=== PATIENT | female | born 1965 | race Caucasian/White ===

== ENCOUNTER 2019-09-15 11:16 | Outpatient (CLI) | payer MEDICAID, SELFPAY ==
--- NOTE | 2019-09-15 11:58 | MR_ITS ---
WS: [id number] MRI CERVICAL SPINE NONCONTRAST TECHNIQUE: Sagittal T1, T2 and STIR imaging. Axial T2, gradient, and fiesta imaging. CLINICAL INFORMATION: INTERVERTEBRAL DISC DISORDER WITH RADICULOPATH OF LUMBAR DIS COMPARISON: MRI January 03, 2016 FINDINGS: Straightening of the normal cervical lordosis. Anterior interbody cervical fusion C4-C7. Disc bulging worse at C3-C4. Fusion is new since 2016. Cord signal is normal. No high-grade central canal stenosi s. C2-C3: Mild disc bulging and osteophytic ridging. Tiny central protrusion. Mild facet arthropathy. Mi ld bilateral foraminal narrowing. C3-C4: Mild disc bulging with endplate ridging. Mild right and no significant left foraminal narrowin g. Moderate facet arthropathy. Spinal canal is patent. C4-C5: Postoperative changes anterior interbody cervical fusion. Mild facet arthropathy. Spinal canal and foramen are patent. C5-C6: Postoperative changes anterior interbody cervical fusion. Moderate left and no significant rig ht foraminal narrowing. Mild facet arthropathy. C6-C7: Postoperative changes anterior interbody cervical fusion. Moderate left and mild to moderate r ight bony foraminal narrowing. Spinal canal is patent. C7-T1: Anterior cervical fusion C7. Spinal canal and foramen are patent. No significant disc bulging. Small disc protrusions in the upper thoracic spine at T1-T2 and T2-3. Visualized brain stem structures: Normal. Prevertebral soft tissues: Normal. MR/MR cervical spin wo con* [id number] IMPRESSION: 1. Normal cervical alignment. No high-grade central canal narrowing. Cord sign al is normal. 2. Anterior cervical fusion C4-C7 is new since 2015. Hardware appears in good position. 3. Disc bulging worse at C3-C4 with slight effacement of the ventral thecal sa c. Moderate right facet arthropathy at this level with mild right foraminal danielle rowing. 4. Moderate bony foraminal narrowing worse at left C5-C6 and left C6-C7.
--- NOTE | 2019-09-15 11:58 | MR_ITS ---
WS: [id number] MRI LUMBAR SPINE NONCONTRAST TECHNIQUE: Sagittal T1, T2 and STIR imaging. Axial T1 and T2 imaging. CLINICAL INFORMATION: INTERVERTEBRAL DISC DISORDER WITH RADICULOPATH OF LUMBAR DIS COMPARISON: MRI lumbar spine 11 FINDINGS: Mild lumbar curve. No acute compression. Mild chronic anterior wedging at L1. Slight retrolisthesis L 1 on L2 and L2 on L3. No high-grade central canal stenosis. Trace anterolisthesis L4 on L5. L1-L2: Mild annular bulging with slight effacement of ventral thecal sac. Mild facet arthropathy. Salvatore rowing of the subarticular recess bilaterally. L2-L3: Mild annular bulging with slight effacement of the ventral thecal sac. Narrowing of the subart icular recess bilaterally. Moderate facet arthropathy. Foramen are patent. L3-L4: Mild annular bulging. Mild facet arthropathy. Spinal canal and foramen are patent. L4-L5: Mild disc bulging with slight effacement of the ventral thecal sac. Narrowing of the left suba rticular recess. Moderate facet arthropathy. Mild left foraminal narrowing. Moderate facet arthropath y. L5-S1: Mild annular bulging. Moderate facet arthropathy. Spinal canal and foramen are patent. Visualized pelvic bony structures: Normal. Paravertebral soft tissues: Normal. MR/MR lumbar spine wo con* [id number] IMPRESSION: 1. Mild lumbar curve. No acute compression. No high-grade central canal stenos is. 2. Chronic anterior wedging at L1. 3. Mild annular bulging L4-5 with narrowing of the left subarticular recess an d encroachment on traversing left L5 nerve root. Mild left foraminal narrowing. 4. Moderate facet arthropathy worse at L2-L3, L3-L4 and L4-5.
--- NOTE | 2019-09-15 11:58 | XR_ITS ---
WS: [id number] CERVICAL SPINE FLEXION EXTENSION TECHNIQUE: 3 views of the cervical spine: lateral neutral, flexion and extension views. CLINICAL INFORMATION: CERVICAL DISC DISORDER COMPARISON: FINDINGS: Straightening of the normal cervical lordosis. Anterior interbody cervical fusion C4-C7. Hardware rosemary ears in good position. Fusion appears solid. Normal alignment on the neutral view. Slight anterolisthesis C3 on C4 in flexion measuring 2 mm. This returns to neutral on extension. Posterior elements are normal. No other significant findings. XR/XR cervical spine fl/ex [id number] IMPRESSION: 1. Mild flexion instability at C3-4. 2. Solid-appearing anterior cervical fusion with interbody fusion C4-C7. Hardw are appears in good position. No evidence of hardware loosening.
--- NOTE | 2019-09-15 11:58 | XR_ITS ---
WS: [id number] LUMBAR SPINE FLEXION AND EXTENSION TECHNIQUE: 3 views of the lumbar spine: Lateral neutral, flexion, and extension views. CLINICAL INFORMATION: INTERVERTEBRAL DISC DISORDER WITH RADICULOPATH OF LUMBAR DIS COMPARISON: None. FINDINGS: 3 mm anterolisthesis L4 on L5. Slight retrolisthesis L2 on L3 and L1 on L2. No significant instabilit y on flexion-extension. Chronic appearing anterior wedging at L1 is unchanged since October 20, 2018 . Vascular calcification XR/XR lumbar spine f/e only [id number] IMPRESSION: 3 mm anterolisthesis of L4 on L5. No significant instability on flexion-extensi on.
== END 2019-09-15 11:17 | disposition home or self-care (01) ==
PROVIDERS: Family Provider Internal Medicine; PCP Internal Medicine; Visit Provider Licensed Practical Nurse
DX: M50.020 Cervical disc disorder with myelopathy, mid-cervical region, unspecified level (principal); M51.17 Intervertebral disc disorders with radiculopathy, lumbosacral region; M51.26 Other intervertebral disc displacement, lumbar region; Z98.1 Arthrodesis status
CPT/HCPCS: 72040; 72120; 72141; 72148

== ENCOUNTER 2019-09-15 11:42 | Outpatient (CLI) | payer MEDICAID, SELFPAY | END 2019-09-15 11:43 | disposition home or self-care (01) | LOC: RADWPI 11:45 | PROVIDERS: Family Provider Internal Medicine; PCP Internal Medicine; Visit Provider Licensed Practical Nurse | DX: Z76.89 Persons encountering health services in other specified circumstances (principal) ==

== ENCOUNTER → 2019-10-15 09:00 | Outpatient (BNVA) | payer MEDICAID, SELFPAY | PROVIDERS: Family Provider Internal Medicine; PCP Internal Medicine; Visit Provider Nurse Practitioner | DX: M47.812 Spondylosis without myelopathy or radiculopathy, cervical region (principal); M54.9 Dorsalgia, unspecified; Z79.891 Long term (current) use of opiate analgesic | CPT/HCPCS: 99214 ==

== ENCOUNTER → 2020-02-10 08:58 | Outpatient (BNVA) | payer MEDICAID, SELFPAY | PROVIDERS: Family Provider Internal Medicine; PCP Internal Medicine; Visit Provider Nurse Practitioner | DX: G89.29 Other chronic pain (principal); M54.41 Lumbago with sciatica, right side; M54.42 Lumbago with sciatica, left side; M51.06 Intervertebral disc disorders with myelopathy, lumbar region; M47.812 Spondylosis without myelopathy or radiculopathy, cervical region; Z79.891 Long term (current) use of opiate analgesic | CPT/HCPCS: 99213; 99214 ==

== ENCOUNTER 2020-03-06 14:05 | Outpatient (CLI) | payer MEDICAID, SELFPAY ==
--- NOTE | 2020-03-06 14:30 | CT_ITS ---
WS: [id number] CT cervical spine. Additional two-dimensional coronal and sagittal reconstruction was performed. 03/06 Clinical Data: Neck pain Comparison: CT cervical spine, 06/11/2019. DLP: 1790.[address] scans at [facility] use at least one of these dose optimization techniques: automat ed exposure control; mA and/or kV adjustment per patient size (includes targeted exams where dose is matched to clinical indication); or iterative reconstruction. Findings: There is an anterior cervical disc fusion from C4 through C7 which remains intact. There is artificia l disc material at C4-C5, C5-C6 and C6-C7. There are posterior osteophytes at C6 and C7. There is a s mall calcification of the anterior longitudinal ligament at C3-C4. The odontoid is normal. There are no compression fractures. The soft tissues of the neck and the lung apices are unremarkable. C2-C3: No disc bulge, canal stenosis or foraminal stenosis is seen. The right facet joint shows osteo arthritic change. C3-C4: No disc bulge, canal stenosis or foraminal stenosis is seen. The right facet joint shows osteo arthritis. C4-C5: No disc bulge, canal stenosis or foraminal stenosis is seen. C5-C6: There is no disc bulging. The left neural foramen is moderately narrow. C6-C7: There is bilateral narrowing of the foramen with an narrowing on the left. No disc bulging is seen. C7-T1: No disc bulge, canal stenosis or foraminal stenosis is seen. CT/CT cervical spin wo con* [id number] Impression: 1. Intact and unchanged anterior cervical disc fusion from C4 through C7. 2. Right facet joint arthritis at C2-3 and C3-4. 3. Left foraminal narrowing at C5-C6 and bilateral foraminal narrowing at C6-C7 .
== END 2020-03-06 14:06 | disposition home or self-care (01) ==
LOC: RADWPI 14:08
PROVIDERS: Family Provider Internal Medicine; PCP Internal Medicine; Visit Provider Licensed Practical Nurse
DX: M54.2 Cervicalgia (principal); M43.22 Fusion of spine, cervical region; M13.88 Other specified arthritis, other site
CPT/HCPCS: 72125

== ENCOUNTER → 2020-04-13 09:18 | Outpatient (BNVA) | payer MEDICAID, SELFPAY | PROVIDERS: Family Provider Internal Medicine; PCP Internal Medicine; Visit Provider Anesthesiology | DX: G89.29 Other chronic pain (principal); M54.42 Lumbago with sciatica, left side; M54.41 Lumbago with sciatica, right side; M51.06 Intervertebral disc disorders with myelopathy, lumbar region; M47.812 Spondylosis without myelopathy or radiculopathy, cervical region; M50.020 Cervical disc disorder with myelopathy, mid-cervical region, unspecified level; M54.9 Dorsalgia, unspecified; M96.1 Postlaminectomy syndrome, not elsewhere classified; Z79.891 Long term (current) use of opiate analgesic | CPT/HCPCS: 99214 ==

== ENCOUNTER → 2020-04-19 09:01 | Outpatient (BNVA) | payer MEDICAID, SELFPAY | PROVIDERS: Family Provider Internal Medicine; PCP Internal Medicine; Visit Provider Licensed Practical Nurse | DX: M96.1 Postlaminectomy syndrome, not elsewhere classified (principal); M50.020 Cervical disc disorder with myelopathy, mid-cervical region, unspecified level; M51.26 Other intervertebral disc displacement, lumbar region | CPT/HCPCS: 99213 ==

== ENCOUNTER 2020-05-12 09:43 | Outpatient (CLI) | payer MEDICAID, SELFPAY ==
--- NOTE | 2020-05-12 10:15 | MR_ITS ---
WS: [id number] MRI CERVICAL SPINE NONCONTRAST TECHNIQUE: Sagittal T1, T2 and STIR imaging. Axial T2, gradient, and fiesta imaging. CLINICAL INFORMATION: M96.1 Postlaminectomy syndrome, not elsewhere classified COMPARISON: MRI September 15, 2019 FINDINGS: Mild cervical curve. Straightening of the normal cervical lordosis. Anterior interbody cervical fusio n C4-C7. Cord signal is normal. C2-C3: Tiny central protrusion. Osteophytic ridging. Mild facet arthropathy. Mild right foraminal danielle rowing. C3-C4: Mild disc bulging with osteophytic ridging. Tiny central protrusion. Moderate facet arthropath y. Mild right greater than left bony foraminal narrowing. Spinal canal is patent. C4-C5: Postoperative changes anterior interbody fusion. Mild left foraminal narrowing. Spinal canal i s patent. C5-C6: Postoperative changes anterior interbody cervical fusion. Mild to moderate left and no signifi cant right foraminal narrowing. Mild facet arthropathy. Spinal canal is patent. C6-C7: Postoperative changes anterior interbody cervical fusion. Moderate left and mild right foramin al narrowing. C7-T1: Mild left and no significant right foraminal narrowing. Spinal canal is patent. Anterior fusio n at C7. Tiny central protrusion at T1-2 upper thoracic spine. MR/MR cervical spin wo con* [id number] IMPRESSION: 1. Stable appearing anterior cervical fusion C4-C7. 2. Cord signal is normal. No significant central canal stenosis. 3. Tiny central protrusion C3-C4 unchanged. 4. Multilevel mild to moderate bony foraminal narrowing worse at right C3-C4, left C5-C6 and left C6-C7.
--- NOTE | 2020-05-12 11:00 | XR_ITS ---
WS: [id number] CERVICAL SPINE FLEXION EXTENSION TECHNIQUE: 3 views of the cervical spine: lateral neutral, flexion and extension views. CLINICAL INFORMATION: Neck pain COMPARISON: September 15, 2019 FINDINGS: Straightening of the normal cervical lordosis. Anterior interbody cervical fusion C4-C7. Normal preve rtebral soft tissues. 1-2 mm anterolisthesis C3 on C4 in flexion. This returns to neutral in extensio n. Posterior elements are normal. No other significant findings. XR/XR cervical spine fl/ex [id number] IMPRESSION: 1. Straightening of the normal cervical lordosis with stable appearing C4-C7 a nterior interbody cervical fusion. 2. 1-2 mm anterolisthesis C3 on C4 in flexion.
== END 2020-05-12 09:44 | disposition home or self-care (01) ==
LOC: RADWPI 09:45
PROVIDERS: Family Provider Internal Medicine; PCP Internal Medicine; Visit Provider Licensed Practical Nurse
DX: M96.1 Postlaminectomy syndrome, not elsewhere classified (principal); Z98.1 Arthrodesis status; M50.21 Other cervical disc displacement, high cervical region; M43.22 Fusion of spine, cervical region
CPT/HCPCS: 72040; 72141

== ENCOUNTER → 2020-05-16 14:28 | Outpatient (BNVA) | payer MEDICAID, SELFPAY | PROVIDERS: Family Provider Internal Medicine; PCP Internal Medicine; Visit Provider Licensed Practical Nurse | DX: M96.1 Postlaminectomy syndrome, not elsewhere classified (principal); M50.020 Cervical disc disorder with myelopathy, mid-cervical region, unspecified level; M51.26 Other intervertebral disc displacement, lumbar region | CPT/HCPCS: 99213 ==

== ENCOUNTER → 2020-06-14 09:30 | Outpatient (BNVA) | payer MEDICAID, SELFPAY | PROVIDERS: Family Provider Internal Medicine; PCP Internal Medicine; Visit Provider Anesthesiology | DX: G89.29 Other chronic pain (principal); M51.26 Other intervertebral disc displacement, lumbar region; M51.06 Intervertebral disc disorders with myelopathy, lumbar region; M47.812 Spondylosis without myelopathy or radiculopathy, cervical region; M50.020 Cervical disc disorder with myelopathy, mid-cervical region, unspecified level; M96.1 Postlaminectomy syndrome, not elsewhere classified; M54.9 Dorsalgia, unspecified; Z79.891 Long term (current) use of opiate analgesic | CPT/HCPCS: 99214 ==

== ENCOUNTER → 2020-08-09 09:45 | Outpatient (BNVA) | payer MEDICAID, SELFPAY | PROVIDERS: Family Provider Internal Medicine; PCP Internal Medicine; Visit Provider Nurse Practitioner | DX: G89.29 Other chronic pain (principal); M51.06 Intervertebral disc disorders with myelopathy, lumbar region; M47.812 Spondylosis without myelopathy or radiculopathy, cervical region; M50.020 Cervical disc disorder with myelopathy, mid-cervical region, unspecified level; M96.1 Postlaminectomy syndrome, not elsewhere classified; Z79.891 Long term (current) use of opiate analgesic | CPT/HCPCS: 99213; 99214 ==

== ENCOUNTER → 2020-10-11 09:14 | Outpatient (BNVA) | payer MEDICAID, SELFPAY | PROVIDERS: Family Provider Internal Medicine; PCP Internal Medicine; Visit Provider Nurse Practitioner | DX: G89.29 Other chronic pain (principal); M48.062 Spinal stenosis, lumbar region with neurogenic claudication; M51.06 Intervertebral disc disorders with myelopathy, lumbar region; M47.812 Spondylosis without myelopathy or radiculopathy, cervical region; M48.02 Spinal stenosis, cervical region; M50.020 Cervical disc disorder with myelopathy, mid-cervical region, unspecified level; M51.26 Other intervertebral disc displacement, lumbar region; M96.1 Postlaminectomy syndrome, not elsewhere classified; Z79.891 Long term (current) use of opiate analgesic | CPT/HCPCS: 99213; 99214 ==

== ENCOUNTER → 2020-12-01 09:36 | Outpatient (BNVA) | payer MEDICAID, SELFPAY | PROVIDERS: Family Provider Internal Medicine; PCP Internal Medicine; Visit Provider Anesthesiology | DX: G89.29 Other chronic pain (principal); M51.26 Other intervertebral disc displacement, lumbar region; M51.06 Intervertebral disc disorders with myelopathy, lumbar region; M47.812 Spondylosis without myelopathy or radiculopathy, cervical region; M48.062 Spinal stenosis, lumbar region with neurogenic claudication; M50.020 Cervical disc disorder with myelopathy, mid-cervical region, unspecified level; M48.02 Spinal stenosis, cervical region; M96.1 Postlaminectomy syndrome, not elsewhere classified; Z79.891 Long term (current) use of opiate analgesic | CPT/HCPCS: 99214 ==

== ENCOUNTER → 2021-01-30 10:24 | Outpatient (BNVA) | payer MEDICAID, SELFPAY | PROVIDERS: Family Provider Internal Medicine; PCP Internal Medicine; Visit Provider Nurse Practitioner | DX: M47.812 Spondylosis without myelopathy or radiculopathy, cervical region (principal); M48.02 Spinal stenosis, cervical region; M50.020 Cervical disc disorder with myelopathy, mid-cervical region, unspecified level; M51.06 Intervertebral disc disorders with myelopathy, lumbar region; M48.062 Spinal stenosis, lumbar region with neurogenic claudication; M51.26 Other intervertebral disc displacement, lumbar region; M96.1 Postlaminectomy syndrome, not elsewhere classified; Z79.891 Long term (current) use of opiate analgesic | CPT/HCPCS: 99213 ==

== ENCOUNTER → 2021-04-06 09:40 | Outpatient (BNVA) | payer MEDICAID, SELFPAY | PROVIDERS: Family Provider Internal Medicine; PCP Internal Medicine; Visit Provider Nurse Practitioner | DX: M51.06 Intervertebral disc disorders with myelopathy, lumbar region (principal); M50.020 Cervical disc disorder with myelopathy, mid-cervical region, unspecified level; M96.1 Postlaminectomy syndrome, not elsewhere classified; M51.26 Other intervertebral disc displacement, lumbar region; M48.062 Spinal stenosis, lumbar region with neurogenic claudication; M48.02 Spinal stenosis, cervical region; M47.812 Spondylosis without myelopathy or radiculopathy, cervical region; Z79.891 Long term (current) use of opiate analgesic | CPT/HCPCS: 99213 ==

== ENCOUNTER → 2021-06-06 09:14 | Outpatient (BNVA) | payer MEDICAID, SELFPAY | PROVIDERS: Family Provider Internal Medicine; PCP Internal Medicine; Visit Provider Anesthesiology | DX: G89.29 Other chronic pain (principal); M51.06 Intervertebral disc disorders with myelopathy, lumbar region; M51.26 Other intervertebral disc displacement, lumbar region; M96.1 Postlaminectomy syndrome, not elsewhere classified; M48.062 Spinal stenosis, lumbar region with neurogenic claudication; M47.812 Spondylosis without myelopathy or radiculopathy, cervical region; M50.020 Cervical disc disorder with myelopathy, mid-cervical region, unspecified level; M48.02 Spinal stenosis, cervical region; Z79.891 Long term (current) use of opiate analgesic | CPT/HCPCS: 99214 ==

== ENCOUNTER 2021-12-10 06:31 | Day surgery (SDC) | payer MEDICAID, SELFPAY ==
[2021-12-06 12:38] VITALS: BMI 29.2
[2021-12-10 06:59] VITALS: BP 120/75; PULSE 71; RESP 18; TEMP 36.6; O2SAT 96
[2021-12-10] MEDS: sodium chloride 0.9% 1,000 ML 30 ML IV (07:02)
--- NOTE | 2021-12-10 07:13 | W.PM.OPSFHP ---
Same Day Surgery H&P Indication for Procedure/HPI DATE OF PROCEDURE: December 10, 2021 CHIEF COMPLAINT/INDICATIONFOR SURGICAL PROCEDURE: Dysphagia PREOP DIAGNOSIS: Dysphagia PLANNED PROCEDURE: Operation Date: 12/10/21 08:00 Proposed Procedures p EGD 44100/r13.10(Not Applicable) - Jamal Higgins MD Medications/Allergies* Allergies/Adverse Reactions Allergy/AdvReac Type Severity Reaction Status Date / Time morphine AdvReac HEADACHE Verified 12/06/21 12:36 Current Medications: Generic Name Dose Route Start Last Admin Trade Name Freq PRN Reason Stop Dose Admin Sodium Chloride 1,000 mls @ 30 mls/hr 12/10/21 06:45 12/10/21 07:02 Sodium Chloride 0.9% IV 12/11/21 06:44 30 mls/hr .Q24H RITA Administration Pertinent History/Comorbid Conditions* Medical History (Updated 05/03/21 @ 10:47 by Jamal Higgins MD) ADD (attention deficit disorder) Cervical disc disorder with myelopathy of mid-cervical region Cervical post-laminectomy syndrome Chronic migraine Displacement of lumbar intervertebral disc GERD (gastroesophageal reflux disease) Hypothyroidism, unspecified Long-term current use of opiate analgesic Pain management contract signed Surgical History (Updated 03/14/20 @ 08:31 by Shira Broderick APRN) History of bilateral breast implants History of colon resection History of colonoscopy History of esophagogastroduodenoscopy (EGD) History of lumpectomy History of tubal ligation (~1986) Hx of cervical spine surgery (~05/02/16) Dr. Daniel Marcial C4-C5, C5-C6 and C6-C7 ACDFF Family History (Updated 03/14/20 @ 07:59 by Marilu Sood LPN) Diabetes Grandmother Cancer Grandfather Family/Other Hypertension Grandmother Stroke Grandmother Social History Second hand smoke exposure: No Alcohol intake: never Household members: spouse Marital status: Current occupational status: disabled History of recent travel: No Pertinent Exam Findings alert, oriented x 3, clear to auscultation bilaterally, regular rate & rhythm, operative site marked and procedure specific exam findings Recommendations Surgery/Procedure today Coding Level of Care Code Acute 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
--- NOTE | 2021-12-10 07:52 | ANES.PREANE2 ---
Pre-Anesthetic Assessment Height/Weight: Height 1.63 m Weight 77.111 kg Temp Pulse Resp BP Pulse Ox 97.9 F 71 18 120/75 96 12/10/21 06:59 12/10/21 06:59 12/10/21 06:59 12/10/21 06:59 12/10/21 06:59 Preop Diagnosis: Dysphagia Operation Date: 12/10/21 08:00 Proposed Procedures p EGD 87499/r13.10(Not Applicable) - Jamal Higgins MD Familial anesthetic complications: None Was Beta Sergio taken within 24 hours: N/A Was Clonidine taken within 24 hours: N/A Last intake: Intake Last Liquid Date 12/09/21 Last Liquid Time 22:00 Last Solid Date 12/09/21 Last Solid Time 21:00 Social No alcohol and No tobacco Exam alert, oriented x 3, clear to auscultation bilaterally and regular rate & rhythm Airway Submandibular: within normal limits Cervical ROM: within normal limits Mallampati: Class II Dentition: chipped Pulmonary None reported CV/HEM None reported > 4 mets None reported Hepatic None reported GI Gastroesophageal Reflux Disease Metabolic None reported Neuropsych Cerebrovascular Accident (TIA) Anesthetic Plan ASA status: 2 Anesthesia: Anesthesia Evaluation and MAC Other: I discussed with the patient risks, goals, and benefits of MAC and general anesthesia. We discussed spectrum of MAC anesthesia including conversion to general as well as possibility of recall of intraoperative stimuli including discomfort/pain. Patient agrees to proceed with MAC. Risk of > 500 ml blood loss (7ml/kg in children): No Medications/Allergies Home Medications Medication Instructions Recorded Confirmed Last Taken Type tizanidine 4 mg tablet 4 mg PO TID PRN #90 tab 07/31/21 12/06/21 12/09/21 Rx fluticasone 500 mcg-salmeterol 50 1 inh INHALATION BID #60 ea 08/21/21 12/06/21 Unknown Rx mcg/dose blistr powdr for inhalation (Advair Diskus) zolpidem 10 mg tablet (Ambien) 10 mg PO .hs PRN #30 tab 10/11/21 12/06/21 Unknown Rx hydrocodone 10 mg-acetaminophen 1 tab PO .6 times daily PRN 30 11/19/21 12/06/21 12/10/21 05:30 Rx 325 mg tablet Days #180 tab dextroamphetamine-amphetamine 10 10 mg PO DAILY 30 Days #30 tab 11/26/21 12/06/21 12/09/21 Rx mg tablet (Adderall) dextroamphetamine-amphetamine ER 20 mg PO DAILY 30 Days #30 cap 11/26/21 12/06/21 12/09/21 Rx 20 mg 24hr capsule,extend release (Adderall XR) pantoprazole 40 mg tablet,delayed 40 mg PO BID 90 Days #180 tab 12/10/21 Unknown Rx release (Protonix) Allergies Allergy/AdvReac Type Severity Reaction Status Date / Time morphine AdvReac HEADACHE Verified 12/06/21 12:36 Current Medications Generic Name Dose Route Start Last Admin Trade Name Freq PRN Reason Stop Dose Admin Sodium Chloride 1,000 mls @ 30 mls/hr 12/10/21 06:45 12/10/21 07:02 Sodium Chloride 0.9% IV 12/11/21 06:44 30 mls/hr .Q24H RITA Administration PFSH Anesthesia Medical History ADD (attention deficit disorder) Cervical disc disorder with myelopathy of mid-cervical region Cervical post-laminectomy syndrome Chronic migraine Displacement of lumbar intervertebral disc GERD (gastroesophageal reflux disease) Hypothyroidism, unspecified Long-term current use of opiate analgesic Pain management contract signed Surgical History History of bilateral breast implants History of colon resection History of colonoscopy History of esophagogastroduodenoscopy (EGD) History of lumpectomy History of tubal ligation (~1986) Hx of cervical spine surgery (~05/02/16) Dr. Daniel Marcial C4-C5, C5-C6 and C6-C7 ACDFF Family History Grandfather Cancer Family/Other Cancer Grandmother Diabetes Hypertension Stroke Social History Second hand smoke exposure: No Alcohol intake: never Household members: spouse Marital status: Current occupational status: disabled History of recent travel: No Data Anesthesia Cardiac Studies: No Data to Display
[2021-12-10 08:26] VITALS: BP 110/78; PULSE 90; RESP 16; TEMP 36.3; O2SAT 99
[2021-12-10 08:39] VITALS: BP 117/86; PULSE 80; RESP 18; O2SAT 99
[2021-12-11 08:05] LABS: H. Pylori / CLO Test Negative
== END 2021-12-10 08:58 | disposition home or self-care (01) ==
PROVIDERS: PCP Internal Medicine; Visit Provider Internal Medicine
PROC: 0DJ08ZZ Inspection of Upper Intestinal Tract, Via Natural or Artificial Opening Endoscopic (ICD-10-PCS; CPT 43235; principal; 2021-12-10 08:00)
DX: R13.10 Dysphagia, unspecified (principal); K21.00 Gastro-esophageal reflux disease with esophagitis, without bleeding; K29.70 Gastritis, unspecified, without bleeding; K21.9 Gastro-esophageal reflux disease without esophagitis; E03.9 Hypothyroidism, unspecified; Z79.01 Long term (current) use of anticoagulants; Z90.49 Acquired absence of other specified parts of digestive tract; Z86.73 Personal history of transient ischemic attack (TIA), and cerebral infarction without residual deficits
CPT/HCPCS: 43239; 87077; J2704; J7030

== ENCOUNTER → 2022-04-30 12:35 | Outpatient (BNVA) | payer MEDICAID, SELFPAY | PROVIDERS: PCP Internal Medicine; Referring Provider Internal Medicine; Visit Provider Orthopaedic Surgery | DX: M48.02 Spinal stenosis, cervical region (principal); M48.062 Spinal stenosis, lumbar region with neurogenic claudication; M51.36 Other intervertebral disc degeneration, lumbar region; M48.061 Spinal stenosis, lumbar region without neurogenic claudication; Z98.1 Arthrodesis status | CPT/HCPCS: 72040; 72110; 99204; 99214 ==

== ENCOUNTER 2022-06-27 13:30 | Outpatient (CLI) | payer MEDICAID, SELFPAY ==
--- NOTE | 2022-06-27 13:45 | MR_ITS ---
WS: [id number] MRI CERVICAL SPINE NONCONTRAST HISTORY: post laminectomy COMPARISON: 05/12/2020 Technique: Multiplanar, multisequence noncontrast imaging of the cervical spine. Mild curvature of the normal cervical lordosis. Prior anterior cervical fusion extends from C4 to C7. Interbody spacers at C4-5, C5-6 and C6-7. No acute fracture or marrow edema. Signal within the cervical cord is normal. Visualized posterior fossa is unremarkable. Craniocervical junction, C1 and C2 relationship, odontoid process and soft tissues are normal. C2-C3: Very small central disc protrusion. Small foraminal osteophytes. No stenosis. C3-C4: Diffuse osteophytic ridging and annular disc bulging. Osteophytes contact the ventral cervical canal. There is mild central with moderate bilateral foraminal stenosis. Edema within the RIGHT face t joint and surrounding soft tissue. C4-C5: Mild facet arthritis. No stenosis. C5-C6: Mild osteophytic ridging. No high-grade stenosis. C6-C7: Facet joint osteophytes. Moderate RIGHT and mild LEFT foraminal stenosis. C7-T1: Mild foraminal narrowing. No high-grade stenosis. Paraspinal soft tissue are normal. MR/MR cervical spin wo con* [id number] IMPRESSION: 1. Prior anterior cervical fusion from C4 to C7 with interbody spacers is stab le. No complications. 2. Mild progression of central stenosis at C3-4 and facet joint arthritis. Mil d central and moderate foraminal stenosis. 3. Acute synovitis involving the RIGHT facet joint and surrounding soft tissue at C3-4. 4. Moderate RIGHT and mild LEFT foraminal stenosis at C6-7 due to osteophytes.
== END 2022-06-27 13:31 | disposition home or self-care (01) ==
LOC: RAD 13:30
PROVIDERS: PCP Internal Medicine; Visit Provider Internal Medicine
DX: M96.1 Postlaminectomy syndrome, not elsewhere classified (principal); M48.02 Spinal stenosis, cervical region; M25.78 Osteophyte, vertebrae; M43.22 Fusion of spine, cervical region
CPT/HCPCS: 72141

== ENCOUNTER 2022-06-27 13:30 | Outpatient (CLI) | payer MEDICAID, SELFPAY ==
--- NOTE | 2022-06-27 14:30 | MR_ITS ---
WS: [id number] MRI LUMBAR SPINE NONCONTRAST HISTORY: low back pain COMPARISON: 09/15/2019 TECHNIQUE: Sagittal and axial multisequence imaging is submitted. Thoracolumbar scoliosis. Cervical fusion hardware extends over several disc spaces. Increase in the lumbar lordosis. 2 mm retrolisthesis of L1 and L2. Mild anterior wedging of L1. Mild narrowing of the disc spaces and desiccation. Conus terminates normally at L1-2 disc level. L1-L2: Mild annular disc bulging. Moderate bilateral facet joint arthritis encroaching into the poste rior lateral thecal sac. Mild encroachment into the subarticular recesses and the foramen. L2-L3: Mild disc bulging and moderate facet joint arthritis. Mild bilateral subarticular recess narro wing and mild foraminal stenosis. L3-L4: Mild disc bulging with mild ligamentum flavum and facet arthritis. L4-L5: Mild asymmetric disc bulging. LEFT foraminal disc protrusion with annular fissure. New since t he prior examination. Mild facet joint arthritis. L5-S1: Mild disc bulging and moderate facet joint arthritis. Paravertebral soft tissues are negative. MR/MR lumbar spine wo con* [id number] IMPRESSION: 1. New small LEFT foraminal disc protrusion with annular fissure at L4-5. Mild encroachment contact on the traversing LEFT L5 nerve root. 2. Bilateral multilevel facet joint arthritis. Not significantly progressed si nce the prior study. 3. Mild subarticular recess encroachment at L1-2 and L2-3.
== END 2022-06-27 13:31 | disposition home or self-care (01) ==
LOC: RAD 13:30
PROVIDERS: PCP Internal Medicine; Visit Provider Orthopaedic Surgery
DX: M48.062 Spinal stenosis, lumbar region with neurogenic claudication (principal); M47.817 Spondylosis without myelopathy or radiculopathy, lumbosacral region; M51.26 Other intervertebral disc displacement, lumbar region
CPT/HCPCS: 72148

== ENCOUNTER → 2022-07-09 13:46 | Outpatient (BNVA) | payer MEDICAID, SELFPAY | PROVIDERS: PCP Internal Medicine; Visit Provider Orthopaedic Surgery | DX: M48.062 Spinal stenosis, lumbar region with neurogenic claudication (principal); M47.22 Other spondylosis with radiculopathy, cervical region | CPT/HCPCS: 99214 ==

== ENCOUNTER 2022-07-26 10:24 | Day surgery (SDC) | payer MEDICAID, SELFPAY ==
[2022-07-22 12:58] VITALS: BMI 30.7
--- NOTE | 2022-07-22 13:09 | ANES.PREANE2 ---
Pre-Anesthetic Assessment Height/Weight: Height 1.63 m Weight 81.193 kg Preop Diagnosis: DDD Cervical Spine, cervical spondylosis with radiculopathy Operation Date: 07/26/22 11:55 Proposed Procedures p Anterior Cervical Discectomy & Fusion(Not Applicable) - Mahesh Ervin DO Familial anesthetic complications: none Social No alcohol and No tobacco former smoker Exam alert, oriented x 3, clear to auscultation bilaterally and regular rate & rhythm Airway Mallampati: Class II Dentition: chipped and partials Comments: Comments: cervical fusion, limited extension Pulmonary None reported CV/HEM None reported None reported Hepatic None reported GI Gastroesophageal Reflux Disease Metabolic Thyroid Disease Musc/skel Lower Back Pain Neuropsych Transient Ischemic Attack Anesthetic Plan ASA status: 3 Anesthesia: General Risk of > 500 ml blood loss (7ml/kg in children): No Medications/Allergies Home Medications Medication Instructions Recorded Confirmed Last Taken Type dextroamphetamine-amphetamine 10 10 mg PO DAILY 30 days #30 tabs 12/20/21 07/22/22 07/22/22 Rx mg tablet (Adderall) dextroamphetamine-amphetamine ER 20 mg PO DAILY 1 month #30 caps 12/20/21 07/22/22 07/22/22 Rx 20 mg 24hr capsule,extend release (Adderall XR) pantoprazole 40 mg tablet,delayed 40 mg PO BID 90 days #180 tabs 06/03/22 07/22/22 07/22/22 Rx release (Protonix) tizanidine 6 mg capsule 6 mg PO Q8H PRN muscle spasticity 06/03/22 07/22/22 07/19/22 Rx #90 caps hydrocodone 7.5 mg-acetaminophen 1 tab PO Q6H PRN pain 1 month #120 07/04/22 07/22/22 07/22/22 Rx 325 mg tablet tabs Intraoperative Neuromonitoring #1 ea 07/15/22 Unknown Rx Allergies Allergy/AdvReac Type Severity Reaction Status Date / Time morphine AdvReac HEADACHE Verified 07/09/22 14:17 COUNT INCLUDES THE [facility] Anesthesia Medical History (Updated 07/09/22 @ 14:21 by Mahesh Ervin DO) ADD (attention deficit disorder) Cervical disc disorder with myelopathy of mid-cervical region Cervical post-laminectomy syndrome Chronic migraine Displacement of lumbar intervertebral disc GERD (gastroesophageal reflux disease) Hypothyroidism, unspecified Long-term current use of opiate analgesic Pain management contract signed Surgical History History of bilateral breast implants History of colon resection History of colonoscopy History of esophagogastroduodenoscopy (EGD) History of lumpectomy History of tubal ligation (~1986) Hx of cervical spine surgery (~05/02/16) Dr. Daniel Marcial C4-C5, C5-C6 and C6-C7 ACDFF Family History Grandfather Cancer Family/Other Cancer Grandmother Diabetes Hypertension Stroke Social History Smoking and tobacco status: former smoker Second hand smoke exposure: No Alcohol intake: never Household members: spouse Marital status: Current occupational status: disabled History of recent travel: No Data Anesthesia Cardiac Studies: No Data to Display
[2022-07-26] VITALS (8 sets, daily range): BP systolic 121–145; BP diastolic 67–93; PULSE 81–93; RESP 15–21; TEMP 36.1–36.8; O2SAT 96–100
--- NOTE | 2022-07-26 | XR_ITS ---
WS: [id number] XR cervical spine 3V* [id number] REASON FOR EXAM: C3-4 ACDF FINDINGS: Anterior fixation at C3-C4 with oblique screws. Pre-existing anterior plate and screw fixation of C4-C7 with interbody fusion devices at C4-C7. Surgical appliances are in proper position and alignment. XR/XR cervical spine 3V* [id number] IMPRESSION: Anterior fusion C3-C4 without abnormality.
[2022-07-26] MEDS: sodium chloride 0.9% 1,000 ML 30 ML IV (11:03)
--- NOTE | 2022-07-26 11:38 | P.ANESUD_ITS ---
Pre-Anesthetic Update Pre-Anesthetic Assessment: Date of Surgery/Procedure: 07/26/22 Preop Soledad gnosis: DDD Cervical Spine, cervical spondylosis with radiculopathy Proposed Procedure: Operation Date: 07/26/22 11:55 Proposed Procedures p Anterior Cervical Discectomy & Fusion(Not Applicable) - Mahesh Ervin, DO Any changes to Pre-Anesthetic Assessment?: No Last Intake: Intake Last Liquid Date 07/25/22 Last Liquid Time 22:00 Last Solid Date 07/25/22 Last Solid Time 22:00 Vitals: Temperature 98.2 F 07/26/22 10:38 Temperature Source Temporal Artery S can 07/26/22 10:38 Pulse Rate 84 07/26/22 10:38 Respiratory Rate 16 07/26/22 10:38 Blood Pressure 130/90 07/26/22 10:38 Blood Pressure Quynh n 103 07/26/22 10:38 Pulse Oximetry 96 07/26/22 10:38 Oxygen Delivery Me thod 07/26/22 10:38 Exam: Pre-Anes Outpt Exam: alert, oriented x 3, clear to auscultation bilaterally and regular rate & rhythm Cardiac Studies: No Data to Display
[2022-07-26] MEDS: fentaNYL 50 mcg/mL INJ 2mL IVP ×2 (12:17→15:08)
--- NOTE | 2022-07-26 12:35 | W.PM.OPSUD ---
Surgery/Procedure H&P Update DATE OF PROCEDURE: July 26, 2022 DATE H&P PERFORMED: 07/09/22 H&P UPDATE INFORMATION: I have reviewed H&P completed within last 30 days, I have examined patient prior to procedure and No changes to prior documentation PREOP DIAGNOSIS: DDD Cervical Spine, cervical spondylosis with radiculopathy PLANNED PROCEDURE: Operation Date: 07/26/22 11:55 Proposed Procedures p Anterior Cervical Discectomy & Fusion(Not Applicable) - Mahesh Ervin DO
[2022-07-26] MEDS: ceFAZolin 2,000 MG in sodium chloride 0.9% (plus) 50 ML 100 MG IV (12:53)
--- NOTE | 2022-07-26 14:46 | PM.OP ---
Operative Report Date of procedure: July 26, 2022 Pre-op diagnosis: Preop Diagnosis DDD Cervical Spine, cervical spondylosis with radiculopathy Post-op diagnosis: same Procedure done: 1. Anterior diskectomy C3/4 2. Insertion of cage C3/4 3. Instrumentation with anterior plate from C3-4 6. Use of allograft Surgeon: Mahesh Ervin Estimated blood loss (mL): 25 Procedure: 1. Anterior diskectomy C3/4 2. Insertion of cage C3/4 3. Instrumentation with anterior plate from C3-4 6. Use of allograft The patient was taken to the operating room, where he underwent general endotracheal anesthesia without complications. He was then positioned supine on the operating table, and all areas of impingement were well padded. The arms were carefully padded and tucked at his sides. A roll was placed between the shoulder blades.. An x-ray was done to determine the appropriate level for the skin incision. The entire neck was then sterilely prepped and draped in the usual fashion. Neuromonitoring was attached prior to prepping. A transverse skin incision was made and carried down to the platysma muscle. This was then split in line with its fibers. Blunt dissection was carried down medial to the carotid sheath and lateral to the trachea and esophagus until the anterior cervical spine was visualized. A needle was placed into a disc and an x-ray was done to determine its location. The longus colli muscles were then elevated bilaterally with the electrocautery unit. Self-retaining retractors were placed deep to the longus colli muscle. The previous plate was identified. Attention was brought to the C3/4 level that was confirmed on x-ray. The microscope was then brought in. A radical anterior discectomies were performed at C[]. This included complete removal of the anterior annulus, nucleus, and posterior annulus. The posterior longitudinal ligament was removed as were the posterior osteophytes. Foraminotomies were then accomplished bilaterally. This was done using a high speed gurmeet, kerrison rongeurs and curretes Once all of this was accomplished, the curved currette was used to check for any residual compression. The central canal was wide open as were the foramen. A high-speed bur was used to remove the cartilaginous endplates above and below the interspace. Bleeding cancellous bone was exposed. The disc space were measured and appropriate size cage were placed sterilely onto the field. Allograft graft was packed into the cages. The cage was then placed and there was good juxtaposition against the bleeding decorticated surfaces and good distraction of each interspace. Was brought to placing a screw from inferior into the inferior aspect of the C3 body and then superiorly down into the superior aspect of the C4 body. There was excellent purchase. A final x-ray was done confirming good position of the hardware and Cages. The locking screws were then applied, also with excellent purchase. Following a final copious irrigation, there was good hemostasis and no dural leaks. The carotid pulse was strong. The wounds were then closed in layers using 2-0 Vicryl suture for the platysma muscle, 2-0 Vicryl suture for the subcutaneous tissue, and 4-0 monocryl suture in a subcuticular skin closure. Glue was placed followed by application of a sterile dressing. The drain was hooked to bulb suction. A soft collar was applied. The patient was then carefully returned to the supine position on his hospital bed where he was reversed and extubated and taken to the recovery room having tolerated the procedure well.
[2022-07-26] MEDS: HYDROcodone-acetaminophen 10-325 mg Tablet 1 TAB PO (15:32)
--- NOTE | 2022-07-26 16:26 | SUR.PHASEII ---
1804 call placed to [facility] [place] regarding pt's new prescription for norco 10/325, pt just had norco 7.5/325 filled last month and needed clarification . Spoke with Prem at pharmacy,stated that pt had surgery today and needed her new prescription of norco 10/[address] Ervin
--- NOTE | 2023-02-14 | XR_ITS ---
WS: [id number] INTRAOPERATIVE TECHNIQUE: 2 Spot fluoroscopic images for intraoperative purposes. FLUOROSCOPY TIME: 10.3 seconds CLINICAL INFORMATION: OR Pic. Left L4-5 decompression COMPARISON: None. FINDINGS: Localization device projected over the LEFT dorsal L4-L5 interspace
== END 2022-07-26 17:15 | disposition home or self-care (01) ==
PROVIDERS: PCP Internal Medicine; Visit Provider Orthopaedic Surgery
PROC: 0RB30ZZ Excision of Cervical Vertebral Disc, Open Approach (ICD-10-PCS; CPT 22551; principal; 2022-07-26 11:45)
DX: M47.22 Other spondylosis with radiculopathy, cervical region (principal); K21.9 Gastro-esophageal reflux disease without esophagitis; Z86.73 Personal history of transient ischemic attack (TIA), and cerebral infarction without residual deficits; E03.9 Hypothyroidism, unspecified; Z79.891 Long term (current) use of opiate analgesic; Z87.891 Personal history of nicotine dependence
CPT/HCPCS: 20930; 22551; 22845; 22853; 51702; 72040; 76000; C1713; C9359; J0690; J2405; J2704; J2710; J3010; J3490; J7030

== ENCOUNTER → 2022-08-08 10:35 | Outpatient (BNVA) | payer MEDICAID, SELFPAY | PROVIDERS: PCP Internal Medicine; Visit Provider Orthopaedic Surgery | DX: Z47.89 Encounter for other orthopedic aftercare (principal); Z98.1 Arthrodesis status | CPT/HCPCS: 99024 ==

== ENCOUNTER → 2022-09-10 15:15 | Outpatient (BNVA) | payer MEDICAID, SELFPAY | PROVIDERS: PCP Internal Medicine; Visit Provider Orthopaedic Surgery | DX: Z47.89 Encounter for other orthopedic aftercare (principal); Z98.1 Arthrodesis status | CPT/HCPCS: 72040; 99024 ==

== ENCOUNTER → 2022-10-22 13:56 | Outpatient (BNVA) | payer MEDICAID, SELFPAY | PROVIDERS: PCP Internal Medicine; Visit Provider Orthopaedic Surgery | DX: Z47.89 Encounter for other orthopedic aftercare (principal); Z98.1 Arthrodesis status | CPT/HCPCS: 72040; 99024; 99213 ==

== ENCOUNTER 2022-12-04 09:07 | Emergency (ER) | payer MEDICAID, SELFPAY ==
[2022-12-04 09:13] VITALS: BP 117/65; PULSE 88; RESP 16; TEMP 36.9; O2SAT 97
[2022-12-04 09:18] VITALS: BP 117/65; PULSE 94; RESP 24; O2SAT 95
--- NOTE | 2022-12-04 09:22 | ECG_ITS ---
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 Measurements Intervals [place] Rate: 80 P: 50 NV: 174 QRS: 42 QRSD: 99 T: 53 QT: 376 QTc: 436 Interpretive Statements SINUS RHYTHM No previous ECG available for comparison Electronically Signed On 12-04-2022 16:22:08 CDT by Cruzito Francois M.D. [email or web address]
--- NOTE | 2022-12-04 09:28 | XR_ITS ---
WS: [id number] EXAMINATION: XR chest 1V portable [id number] REASON FOR EXAM: chest pain, sob, hemoptysis COMPARISON: 06/18/2016. ORDER DATE: 12/04/2022 9:29 AM TECHNIQUE: A single, portable frontal chest x-ray was obtained. X-RAY FINDINGS: The lungs are clear. Pleural spaces are clear. No pleural effusions or pneumothorax. Cardiomediastinal silhouette is normal. No evidence for pulmonary edema. Soft tissue and osseous structures are unremarkable except for lower cervical spine fusion with plati ng. No tubes or lines are present. XR/XR chest 1V portable [id number] IMPRESSION: Unremarkable frontal portable chest x-ray.
--- NOTE | 2022-12-04 09:29 | ED_ITS ---
HPI - SOB/Dyspnea General: Chief Complaint: Shortness of Breath/Dyspnea Stated Complaint: cough, sob, right arm pain Time Seen by Provider: 12/04/22 09:14 Source: patient Mode of arrival: ambulatory Limitations: no limitations History of Present Illness: HPI Narrative: Patient is a 57-year-old female here with concerns of a productive cough-with hemoptysis along with chest pain with radiation into her right shoulder. Patient states she has had somewhat of a cough ever since she was diagnosed with COVID approximately a year ago. States she will cough up scabs and sometimes blood tinged sputum. She states about a month or so ago she began noticing more blood like sputum. She states today after a large coughing spell she noticed a large amount of bright red blood and felt like she pulled something in her chest-reports symptoms scared her thus prompting her visit now. Patient reports no chest pain at rest-only with coughing. She does report feeling winded easily and states that has been present over the past month or so. She is status post cervical laminectomy by Dr. Ervin approximately 16 weeks ago. She has no complaints of lower extremity swelling or calf pain. No previous DVT/PE. No known cardiac history. No history of asthma, COPD, emphysema. Patient is a former smoker but states she quit approximately 20 years ago. MD elicited complaint: shortness of breath and cough Onset (ago): week(s) Exacerbating factors: coughing Relieving factors: nothing Associated symptoms: Reports chest pain and hemoptysis; Deny abdominal pain, dizziness, extremity pain, fever(s), lightheadedness, nausea, orthopnea, palpitations, syncope or vomiting Treatment prior to arrival: none Related Data: Home oxygen amount: none Review of Systems Const: Denies: fever(s), chills, body aches, fatigue or malaise Eyes: Denies: change in vision or blurry vision Card: Reports: chest pain and dyspnea on exertion; Denies: palpitations, irregular heart rhythm, edema, swelling of feet/ankles, lightheadedness, syncope, pre-syncope, orthopnea, leg pain with exertion or acrocyanosis Resp: Reports: dyspnea, productive cough, change in phlegm color and hemoptysis; Denies: wheezing GI: Denies: abdominal pain, nausea, vomiting, heartburn or diarrhea : Denies: flank pain or dysuria Musc: Denies: neck pain, back pain, extremity pain, extremity swelling or joint pain Skin/Breast: Denies: rash Neuro: Denies: headache(s), numbness in extremities, weakness in extremities, sensory changes, difficulty walking or dizziness PFSH ED PFSH: Medical History (Updated 12/04/22 @ 10:48 by LE Rivera) ADD (attention deficit disorder) Cervical disc disorder with myelopathy of mid-cervical region Cervical post-laminectomy syndrome Chronic migraine Displacement of lumbar intervertebral disc GERD (gastroesophageal reflux disease) Hypothyroidism, unspecified Long-term current use of opiate analgesic Pain management contract signed Surgical History History of bilateral breast implants History of colon resection History of colonoscopy History of esophagogastroduodenoscopy (EGD) History of lumpectomy History of tubal ligation (~1986) Hx of cervical spine surgery (~05/02/16) Dr. Daniel Marcial C4-C5, C5-C6 and C6-C7 ACDFF Family History Grandfather Cancer Family/Other Cancer Grandmother Diabetes Hypertension Stroke Social History Smoking and tobacco status: former smoker Second hand smoke exposure: No Alcohol intake: never Household members: spouse Marital status: Current occupational status: disabled Physical Exam Const: COMMON NORMALS: no acute distress, average body habitus, patient oriented x3, no limitations, healthy appearing, alert and well nourished GENERAL APPEARANCE: cooperative ORIENTATION/CONSCIOUSNESS: Yes awake, Yes oriented to person, Yes oriented to place and Yes oriented to time HENMT: COMMON NORMALS: normocephalic and atraumatic HEAD & SCALP: normal to inspection, normocephalic and atraumatic MOUTH: Normal oral and palatal mucosa present, lip normal and tongue normal THROAT: posterior oropharynx normal, tonsils normal and uvula midline Neck/C-Spine: COMMON NORMALS: full ROM and no lymphadenopathy GENERAL: Yes normal visual inspection, No anterior neck swelling and No submandibular swelling Chest: COMMONS NORMALS: normal inspection of the chest and normal palpation of entire chest wall Resp: COMMON NORMALS: normal respiratory effort and clear to auscultation bilaterally AUSCULTATION: clear to auscultation bilaterally Cardio: COMMON NORMALS: regular rate and regular rhythm RATE: regular rate RHYTHM: regular rhythm Extremity: COMMON NORMALS: normal to inspection, full ROM, no clubbing, cyanosis or edema, no calf tenderness and no pedal edema GENERAL: Yes normal exam except as noted Neuro: XANDER COMA SCALE: document GCS findings [place] coma scale eye opening: Spontaneous [place] coma scale verbal response: Orientated [place] coma scale motor response: Obey commands [place] coma scale total score: 15 COMMON NORMALS: patient oriented x3, moves all extremities, no focal motor deficits and no sensory deficits noted SENSORIUM/ORIENTATION: Yes alert, Yes oriented to person, Yes oriented to place and Yes oriented to time Skin: COMMON NORMALS: no rashes or lesions noted GENERAL SKIN EXAM: no rashes or lesions noted Course Vital Signs: Vital signs: Vital Signs Temperature 98.5 F 12/04/22 09:13 Pulse Rate 90 12/04/22 09:48 Respiratory Rate 24 H 12/04/22 09:18 Blood Pressure 115/89 12/04/22 09:48 Pulse Oximetry 93 12/04/22 09:48 Oxygen Delivery Me thod Room Air 12/04/22 09:48 MDM - SOB/Dyspnea Medical Decision Making Patient denied any active chest pain. She only states chest pain is present when coughing. Patient was worked up including cardiac work-up as well as a d- dimer due to hemoptysis and her surgery 16 weeks ago. D-dimer was negative. Baseline troponin is normal. EKG showing no ischemic changes. CXR is normal. We will go ahead and refer her to pulmonology for further evaluation of dyspnea and worsening hemoptysis. Will place on steroids, antibiotics, and albuterol inhaler as she does state sputum/phlegm has seemed to worsen over the past 2 weeks. Strict return to ED precautions given. Lab Data 12/04/22 09:35 12/04/22 09:35 Labs/Radiology: Radiology Impressions Chest X-Ray 12/04/22 09:28 IMPRESSION: Unremarkable frontal portable chest x-ray. Laboratory Results WBC 5.8 10^3/uL (4.0-10.0) 12/04/22 09:35 RBC 4.46 10^6/uL (4.1-5.3) 12/04/22 09:35 Hgb 12.5 g/dL (11.5-15.3) 12/04/22 09:35 Hct 39.5 % (37.0-47.0) 12/04/22 09:35 MCV 88.6 fl (81-99) 12/04/22 09:35 MCH 28.0 pg (28.0-34.0) 12/04/22 09:35 MCHC 31.6 g/dL (30.0-36.0) 12/04/22 09:35 RDW 13.8 % (12.1-15.1) 12/04/22 09:35 Plt Count 345 10^3/cmm (130-400) 12/04/22 09:35 MPV 8.4 fL (7.4-10.4) 12/04/22 09:35 Neut % (Auto) 39.6 % 12/04/22 09:35 Lymph % (Auto) 46.7 % 12/04/22 09:35 Scurry % (Auto) 8.4 % 12/04/22 09:35 Eos % (Auto) 4.6 % 12/04/22 09:35 Baso % (Auto) 0.5 % 12/04/22 09:35 Neut # (Auto) 2.31 10^3/uL (1.8-7.7) 12/04/22 09:35 Lymph # (Auto) 2.7 10^3/uL (0.8-4.8) 12/04/22 09:35 Scurry # (Auto) 0.5 10^3/uL (0.2-0.9) 12/04/22 09:35 Eos # (Auto) 0.3 10^3/uL (0.0-0.8) 12/04/22 09:35 Baso # (Auto) 0.0 10^3/uL (0.0-0.1) 12/04/22 09:35 Nucleated RBC % (auto) 0 % 12/04/22 09:35 Nucleated RBCs # 0.0 /100WBC 12/04/22 09:35 D-Dimer 0.52 ug/mIFEU (0-0.59) 12/04/22 09:35 Sodium 141 mmol/L (136-145) 12/04/22 09:35 Potassium 4.0 mmol/L (3.5-5.1) 12/04/22 09:35 Chloride 107 mmol/L (98-107) 12/04/22 09:35 Carbon Dioxide 23 mmol/L (22-29) 12/04/22 09:35 Anion Gap 15.0 (5-19) 12/04/22 09:35 BUN 11 mg/dL (6-20) 12/04/22 09:35 Creatinine 0.5 mg/dL (0.5-0.9) 12/04/22 09:35 GFR Calculation 126.3 mL/min (90-130) 12/04/22 09:35 Glucose 76 mg/dL (65-115) 12/04/22 09:35 Calculated Osmolality 290 mOsm/kg (285-295) 12/04/22 09:35 Calcium 8.6 mg/dL (8.5-10.5) 12/04/22 09:35 Total Bilirubin 0.3 mg/dL (0.15-1.2) 12/04/22 09:35 AST 20 U/L (0-32) 12/04/22 09:35 ALT 15 U/L (0-33) 12/04/22 09:35 Alkaline Phosphatase 89 U/L (35-105) 12/04/22 09:35 Troponin T Baseline 6 ng/L (0-10) 12/04/22 09:35 Total Protein 7.3 g/dL (6.6-8.7) 12/04/22 09:35 Albumin 4.3 g/dL (3.5-5.2) 12/04/22 09:35 Globulin 3.0 g/dL (1.3-4.6) 12/04/22 09:35 Discharge Plan Discharge Patient Disposition: Home Clinical Impression: Cough with hemoptysis Condition: Stable Prescriptions: New Medrol (Cale) 4 mg tablets,dose pack See Rx Instructions .ROUTE .COMPLEX Qty: 21 0RF Rx Instructions: orally per package directions levofloxacin 500 mg tablet 500 mg PO DAILY 5 Days Qty: 5 0RF albuterol sulfate 90 mcg/actuation HFA aerosol inhaler 2 inh INHALATION Q4H PRN (Reason: shortness of breath) Qty: 6.7 0RF No Action diazepam [Valium] 5 mg tablet 5 mg PO DAILY PRN (Reason: anxiety) 7 Days Qty: 4 0RF Protonix 40 mg tablet,delayed release (DR/EC) 40 mg PO BID 90 Days Qty: 180 3RF tizanidine 4 mg tablet 6 mg PO Q8H PRN (Reason: Muscle Spasm) Hair, Skin, Nails with Biotin 7.5-7.5-1,250 mg-unit-mcg Tablet,Chewable 2 tab PO BEDTIME hydrocodone-acetaminophen 5-325 mg tablet 1 tab PO Q8H PRN (Reason: Pain) Adderall 10 mg tablet 10 mg PO DAILY PRN (Reason: unknown) Adderall XR 20 mg capsule,extended release 24hr 20 mg PO QAM Discharge Orders: Discharge ED (Routine); Ordered 12/04/22 Ordered By: Kayleigh Leon Referrals: Jamal Higgins MD [Primary Care Provider] - Coding Level of Care Code ED Materials Development Engineer for Simona Merritt
[2022-12-04 09:42] LABS: Basophils % 0.5 %; Eosinophils # 0.3 10^3/uL (0.0-0.8); Eosinophils % 4.6 %; Hematocrit 39.5 % (37.0-47.0); Hemoglobin 12.5 g/dL (11.5-15.3); Lymphocytes # 2.7 10^3/uL (0.8-4.8); Lymphocytes % 46.7 %; Mean Corpuscular HGB Conc 31.6 g/dL (30.0-36.0); Mean Corpuscular Volume 88.6 fl (81-99); Mean Platelet Volume 8.4 fL (7.4-10.4); Monocytes # 0.5 10^3/uL (0.2-0.9); Monocytes % 8.4 %; Neutrophils # 2.31 10^3/uL (1.8-7.7); Neutrophils % 39.6 %; Nucleated Red Blood Cells % 0 %; Platelet Count 345 10^3/cmm (130-400); Red Blood Count 4.46 10^6/uL (4.1-5.3); Red Cell Distribution Width 13.8 % (12.1-15.1); White Blood Count 5.8 10^3/uL (4.0-10.0)
[2022-12-04 09:48] VITALS: BP 115/89; PULSE 90; O2SAT 93
[2022-12-04 10:17] LABS: D Dimer 0.52 ug/mIFEU (0-0.59)
[2022-12-04 10:20] LABS: Troponin(5th) Baseline 6 ng/L (0-10)
[2022-12-04 10:22] LABS: Alanine Aminotransferase 15 U/L (0-33); Albumin Level 4.3 g/dL (3.5-5.2); Alkaline Phosphatase 89 U/L (35-105); Aspartate Amino Transferase 20 U/L (0-32); Blood Urea Nitrogen 11 mg/dL (6-20); Calcium 8.6 mg/dL (8.5-10.5); Carbon Dioxide 23 mmol/L (22-29); Chloride 107 mmol/L (98-107); Glomerular Filtration Rate 126.3 mL/min (90-130); Glucose 76 mg/dL (65-115); Osmolality Calculated 290 mOsm/kg (285-295); Sodium 141 mmol/L (136-145); Total Bilirubin 0.3 mg/dL (0.15-1.2); Total Protein 7.3 g/dL (6.6-8.7)
[2022-12-04 11:05] VITALS: BP 125/88; PULSE 78; O2SAT 97
--- NOTE | 2022-12-04 11:14 | DCPLANNER ---
Addendum entered by Neda Russell 02/05/23 10:32: This appointment was rescheduled Addendum entered by Neda Russell 12/05/22 07:35: Patient has a follow up appointment scheduled for Friday, February 05, 2023 at 9:[address] Rojas at pulmonology. Original Note: manager garden had message to schedule a follow up appointment for patient with pulmonology. manager garden sent patients information to the front office staff at [facility]. Patients information will be printed and reviewed. Clinic will call patient with appointment information.
== END 2022-12-04 11:07 | disposition home or self-care (01) ==
PROVIDERS: Emergency Provider Physician Assistant; PCP Internal Medicine
DX: R04.2 Hemoptysis (principal); Z87.891 Personal history of nicotine dependence
CPT/HCPCS: 71045; 80053; 84484; 85025; 85378; 93005; 99285

== ENCOUNTER → 2023-01-28 15:23 | Outpatient (BNVA) | payer MEDICAID, SELFPAY | PROVIDERS: PCP Internal Medicine; Visit Provider Orthopaedic Surgery | DX: Z98.1 Arthrodesis status (principal); M48.062 Spinal stenosis, lumbar region with neurogenic claudication | CPT/HCPCS: 72040; 99214 ==

== ENCOUNTER → 2023-02-04 10:50 | Outpatient (BNVA) | payer MEDICAID, SELFPAY | PROVIDERS: PCP Internal Medicine; Visit Provider Clinical Nurse Specialist Adult Health | DX: Z01.818 Encounter for other preprocedural examination (principal) | CPT/HCPCS: 80053; 85025 ==

== ENCOUNTER 2023-02-14 08:20 | Day surgery (SDC) | payer MEDICAID, SELFPAY ==
[2023-02-13 14:03] VITALS: BMI 29.2
[2023-02-14] VITALS (11 sets, daily range): BP systolic 105–127; BP diastolic 63–86; PULSE 60–81; RESP 14–18; TEMP 36.1–36.4; O2SAT 92–100
--- NOTE | 2023-02-14 | XR_ITS ---
WS: [id number] INTRAOPERATIVE TECHNIQUE: 2 Spot fluoroscopic images for intraoperative purposes. FLUOROSCOPY TIME: 10.3 seconds CLINICAL INFORMATION: OR Pic. Left L4-5 decompression COMPARISON: None. FINDINGS: Localization device projected over the LEFT dorsal L4-L5 interspace XR/XR lumbar spine 1V [id number] IMPRESSION: Images obtained for intraoperative purposes.
[2023-02-14] MEDS: sodium chloride 0.9% 1,000 ML 30 ML IV (08:44)
--- NOTE | 2023-02-14 09:25 | W.PM.OPSUD ---
Surgery/Procedure H&P Update DATE OF PROCEDURE: February 14, 2023 DATE H&P PERFORMED: 02/04/23 H&P UPDATE INFORMATION: I have reviewed H&P completed within last 30 days, I have examined patient prior to procedure and No changes to prior documentation PREOP DIAGNOSIS: Lumbar stenosis PLANNED PROCEDURE: Operation Date: 02/14/23 10:00 Proposed Procedures p LEFT L4/5 Lumbar Decompression:00286,M48.062(Left) - Mahesh Ervin DO
[2023-02-14] MEDS: HYDROmorphone 1 mg/mL INJ 1 mL 0.5 MG IVP (09:51)
[2023-02-14] MEDS: ceFAZolin 2,000 MG in sodium chloride 0.9% (plus) 50 ML 100 MG IV (10:12)
--- NOTE | 2023-02-14 10:30 | ANES.PREANE2 ---
Pre-Anesthetic Assessment Height/Weight: Height 1.63 m Weight 77.111 kg Temp Pulse Resp BP Pulse Ox O2 Del Method 97.6 F 74 16 127/86 97 Room Air 02/14/23 08:28 02/14/23 08:28 02/14/23 09:51 02/14/23 08:28 02/14/23 08:28 02/14/23 08:29 Preop Diagnosis: Lumbar stenosis Operation Date: 02/14/23 10:00 Proposed Procedures p LEFT L4/5 Lumbar Decompression:68855,M48.062(Left) - Mahesh Ervin DO Familial anesthetic complications: none Was Beta Sergio taken within 24 hours: N/A Was Clonidine taken within 24 hours: N/A Last intake: Intake Last Liquid Date 02/13/23 Last Liquid Time 21:00 Last Solid Date 02/13/23 Last Solid Time 21:00 Social No alcohol and No tobacco Exam alert, oriented x 3, clear to auscultation bilaterally and regular rate & rhythm Airway Submandibular: within normal limits Cervical ROM: within normal limits Mallampati: Class II Dentition: chipped Pulmonary Asthma GI Gastroesophageal Reflux Disease [facility]/el Lower Back Pain and Osteoarthritis/DJD Neuropsych Headache and Transient Ischemic Attack Chronic pain/opioid Anesthetic Plan ASA status: 3 Anesthesia: General Medications/Allergies Home Medications Medication Instructions Recorded Confirmed Last Taken Type pantoprazole 40 mg tablet,delayed 40 mg PO BID 90 days #180 tabs 06/03/22 02/13/23 02/13/23 Rx release (Protonix) diazepam 5 mg tablet (Valium) 5 mg PO DAILY PRN anxiety 7 days 09/10/22 02/13/23 Unknown Rx #4 tabs albuterol sulfate 90 mcg/actuation 2 inh inhalation Q4H PRN shortness 12/04/22 02/13/23 Unknown Rx aerosol inhaler of breath #6.7 grams ascorbic acid 7.5 mg-vit E 7.5 2 tab PO BEDTIME 12/04/22 02/13/23 12/03/22 History unit-biotin 1,250 mcg chewable tablet (Hair,Skin,Nails with Biotin) dextroamphetamine-amphetamine 10 10 mg PO DAILY PRN unknown 12/04/22 02/13/23 02/13/23 History mg tablet (Adderall) dextroamphetamine-amphetamine ER 20 mg PO QAM 12/04/22 02/13/23 02/13/23 History 20 mg 24hr capsule,extend release (Adderall XR) hydrocodone 5 mg-acetaminophen 325 1 tab PO Q8H PRN Pain 12/04/22 02/13/23 02/14/23 05:30 History mg tablet tizanidine 4 mg tablet 6 mg PO Q8H PRN Muscle Spasm 12/04/22 02/13/23 Unknown History Allergies Allergy/AdvReac Type Severity Reaction Status Date / Time morphine AdvReac HEADACHE Verified 02/04/23 10:31 Current Medications Generic Name Dose Route Start Last Admin Trade Name Freq PRN Reason Stop Dose Admin Hydromorphone HCl 0.5 mg 02/14/23 09:32 02/14/23 09:51 Hydromorphone 1 Mg/Ml Inj 1 Ml IVP 0.5 mg ONCE PRN Administration For preop pain/anxiety Sodium Chloride 1,000 mls @ 30 mls/hr 02/14/23 08:30 02/14/23 08:44 Sodium Chloride 0.9% IV 02/15/23 08:29 30 mls/hr .Q24H RITA Administration PFSH Anesthesia Medical History ADD (attention deficit disorder) Cervical disc disorder with myelopathy of mid-cervical region Cervical post-laminectomy syndrome Chronic migraine Displacement of lumbar intervertebral disc GERD (gastroesophageal reflux disease) Hx of TIA (transient ischemic attack) and stroke 2015 Hypothyroidism, unspecified Long-term current use of opiate analgesic Pain management contract signed Surgical History History of bilateral breast implants History of colon resection History of colonoscopy History of esophagogastroduodenoscopy (EGD) History of lumpectomy History of tubal ligation (~1986) Hx of cervical spine surgery (~05/02/16) Dr. Daniel Marcial C4-C5, C5-C6 and C6-C7 ACDFF Family History Grandfather Cancer Family/Other Cancer Grandmother Diabetes Hypertension Stroke Social History Smoking and tobacco status: former smoker Second hand smoke exposure: No Alcohol intake: never Substance/Drug Use: never Household members: spouse Marital status: Current occupational status: disabled Data Anesthesia Cardiac Studies: No Data to Display
[2023-02-14] MEDS: lidocaine-epi 2% 20 mL INJ INJECTION (10:39)
--- NOTE | 2023-02-14 10:56 | PM.OP ---
Operative Report Date of procedure: February 14, 2023 Pre-op diagnosis: Preop Diagnosis Lumbar stenosis with neurogenic claudication Post-op diagnosis: same Procedure done: 1. L4/5 laminectomy with partial facetectomy Surgeon: Mahesh Ervin Forms Analysis Manager: none Estimated blood loss (mL): 5 Procedure: 1. L4/5 laminectomy with partial facetectomy Patient is brought to the operative suite. After undergoing anesthesia they are placed in the prone position. All areas of impingement are well padded. Patient is then prepped and draped in the normal sterile fashion. A skin incision is made over the L4/5 level. This is confirmed under c-arm guidance. A series of dilators are passed and the tubular retractor is docked on the L4 lamina. A bovie is used to clear the soft tissue off the lamina and the L 4/5 facet joint. A high speed gurmeet is then used to perform the laminectomy and take down the medial aspect of the L 4/5 facet joint. A kerrison rongeure was then used to take down the remaining lamina and smooth the edge of the laminectomy up to the point where the ligamentum flavum attaches. Attention was then brought to the medial aspect of the facet joint. The remaining medial aspect of the superior and inferior aspect of the facet joint were taken down with the kerrison from the pedicle of L4 to L 5. The facet joint had significant hypertrophy. Attention was then brought to the Ligamentum Flavum. The ligament was taken down from the lamina of L4 to L5 and out medially to the remaining facet joint. The ligament was thick. The dura was then exposed. The dura was in good repair. The L4 nerve was then traced with a curette out the L4/5 foramen and found to be adequately decompressed. The L5 nerve was traced with a curette around the L5 pedicle. The lateral recess was opened with a kerrison helping to further decompress the L5 nerve. Wound is then irrigated copiously with saline and surgiflo is used to stop any bleeding. The tubular retractor is removed and the wound is closed with vicryl and monocryl suture. Glue is then used to protect the wound. A sterile dressing is then placed. Patient was then placed in the supine position and transferred to the PACU in stable condition.
--- NOTE | 2023-02-14 11:15 | PC.NURSE ---
Pt arrived to PACU, resting comfortably. Dressing to lower back C/D/I. Pt moving, rolled over on left side, tolerating activity well. Pt denies any pain or nausea at this time.
[2023-02-14] MEDS: HYDROcodone-acetaminophen 5-325 mg Tablet 1 TAB PO (12:31)
--- NOTE | 2023-02-14 13:43 | ANE.PACU2 ---
Inpatient post-anesthesia follow up: Airway intact: Yes Vital signs: Temperature 97.4 F Pulse Rate 70 Respiratory Rate 18 Blood Pressure 119/81 Pulse Oximetry 92 Oxygen Delivery Me thod Room Air Oxygen Flow Rate Fraction of Inspir ed Oxygen Hydration adequate: Yes Nausea and vomiting: No Pain level: 3 Mental status: Baseline
== END 2023-02-14 12:40 | disposition home or self-care (01) ==
PROVIDERS: PCP Internal Medicine; Visit Provider Orthopaedic Surgery
PROC: (CPT 63005; principal; 2023-02-14 10:00)
DX: M48.062 Spinal stenosis, lumbar region with neurogenic claudication (principal); J45.909 Unspecified asthma, uncomplicated; K21.9 Gastro-esophageal reflux disease without esophagitis; Z87.891 Personal history of nicotine dependence; Z79.891 Long term (current) use of opiate analgesic
CPT/HCPCS: 63047; 72020; 76000; J0690; J1100; J1170; J2405; J2704; J2710; J3010; J3490; J7030

== ENCOUNTER → 2023-02-27 15:00 | Outpatient (BNVA) | payer MEDICAID, SELFPAY | PROVIDERS: PCP Internal Medicine; Visit Provider Physician Assistant | DX: Z98.890 Other specified postprocedural states (principal) | CPT/HCPCS: 99024 ==

== ENCOUNTER → 2023-03-25 13:10 | Outpatient (BNVA) | payer MEDICAID, SELFPAY | PROVIDERS: PCP Internal Medicine; Visit Provider Physician Assistant | DX: Z47.89 Encounter for other orthopedic aftercare (principal) | CPT/HCPCS: 99024 ==

== ENCOUNTER → 2023-04-22 13:47 | Outpatient (BNVA) | payer MEDICAID, SELFPAY | PROVIDERS: PCP Internal Medicine; Visit Provider Orthopaedic Surgery | DX: Z98.1 Arthrodesis status; Z79.891 Long term (current) use of opiate analgesic; Z47.89 Encounter for other orthopedic aftercare | CPT/HCPCS: 99024; 99214 ==

== ENCOUNTER → 2023-07-08 12:56 | Outpatient (BNVA) | payer MEDICAID, SELFPAY | PROVIDERS: PCP Internal Medicine; Visit Provider Internal Medicine Pulmonary Disease | DX: R04.2 Hemoptysis (principal); Z87.891 Personal history of nicotine dependence; R06.09 Other forms of dyspnea; R05.8 Other specified cough; Z86.16 Personal history of COVID-19 | CPT/HCPCS: 99204 ==

== ENCOUNTER 2023-07-11 07:28 | Outpatient (CLI) | payer MEDICAID, SELFPAY ==
--- NOTE | 2023-07-11 07:30 | CTR_ITS ---
PROCEDURE INFORMATION: Exam: CT Chest Without Contrast; Diagnostic Exam date and time: 07/11/2023 7:38 AM Age: 57 years old Clinical indication: Other: Hemoptysis and weight loss. TECHNIQUE: Imaging protocol: Diagnostic computed tomography of the chest without contrast. Radiation optimization: All CT scans at this facility use at least one of these dose optimization techniques: automated exposure control; mA and/or kV adjustment per patient size (includes targeted exams where dose is matched to clinical indication); or iterative reconstruction. REPORTING DATA: Count of CT and Cardiac NM exams in prior 12 months: This patient has received 0 known CTs and 0 known cardiac nuclear medicine studies in the 12 months prior to the current study. COMPARISON: CR XR chest 1V portable [id number] 12/04/2022 9:48 AM RADIATION DOSE METRICS: Total DLP (mGy-cm): 428.47 FINDINGS: Lungs: Unremarkable. No consolidation. No masses. Pleural spaces: Unremarkable. No pneumothorax. No pleural effusion. Heart: Unremarkable. No cardiomegaly. No pericardial effusion. Coronary arteries: Minimal coronary artery calcification. Lymph nodes: Unremarkable. No enlarged lymph nodes. Vasculature: Unremarkable. No aortic aneurysm. Bones/joints: Unremarkable. No acute fracture. Soft tissues: Unremarkable. CT/CT chest wo con [id number] IMPRESSION: No acute findings.
== END 2023-07-11 07:29 | disposition home or self-care (01) ==
LOC: RAD 07:29
PROVIDERS: PCP Internal Medicine; Visit Provider Internal Medicine Pulmonary Disease
DX: R04.2 Hemoptysis (principal); R63.4 Abnormal weight loss
CPT/HCPCS: 71250

== ENCOUNTER 2023-08-01 10:33 | Outpatient (CLI) | payer MEDICAID, SELFPAY ==
--- NOTE | 2023-08-01 11:00 | FL_ITS ---
WS: [id number] Modified barium swallow, 08/01/2023 Clinical Data: R13.10 - Dysphagia, unspecified Comparison: None. Fluoroscopy time: 1min [id number] # of spot films: 1 Findings: The patient had difficulty in evacuating the oral contents but did clear with double swallows. There is no hypopharyngeal residue. No aspiration or penetration occurred. The barium tablet passed normall y from the oropharynx into the hypopharynx. There was some hesitation in the midesophagus but a bolus of water chased the tablet into the stomach. Impression: 1. Difficulty in evacuating oral contents but did clear with double swallows. 2. No aspiration or penetration. 3. Slight hesitation in the midesophagus and passing the barium tablet.
== END 2023-08-01 10:34 | disposition home or self-care (01) ==
LOC: RAD 10:34
PROVIDERS: PCP Internal Medicine; Visit Provider Internal Medicine Pulmonary Disease
DX: R13.10 Dysphagia, unspecified (principal)
CPT/HCPCS: 74230; 92611

== ENCOUNTER → 2023-09-23 14:03 | Outpatient (BNVA) | payer MEDICAID, SELFPAY | PROVIDERS: PCP Internal Medicine; Visit Provider Orthopaedic Surgery | DX: M47.22 Other spondylosis with radiculopathy, cervical region (principal); M54.42 Lumbago with sciatica, left side; M54.41 Lumbago with sciatica, right side; G89.29 Other chronic pain | CPT/HCPCS: 99214 ==

== ENCOUNTER 2023-10-17 14:50 | Outpatient (CLI) | payer MEDICAID, SELFPAY ==
--- NOTE | 2023-10-17 15:15 | MR_ITS ---
WS: [id number] MRI LUMBAR SPINE NONCONTRAST HISTORY: Chronic pain down both legs. Prior lumbar surgery February 2023. COMPARISON: 06/27/2022 TECHNIQUE: Sagittal and axial multisequence imaging is submitted. Mild increase in the lumbar lordosis, similar to the prior study. L1 retrolisthesis by 4.6 mm and L2 retrolisthesis by 2.4 mm, unchanged. Mild anterior wedging of L1 is stable. No marrow edema or acute fracture. Disc bases are mildly desiccated. Conus terminates normally at L1-2 disc level. L1-L2: Retrolisthesis of L1 and annular disc bulging and facet arthritis. There is disc encroachment upon the ventral thecal sac and foramina. Mild central, bilateral subarticular recess and moderate fo raminal stenosis. Foraminal stenosis is slightly progressed since the prior study. L2-L3: Diffuse annular disc bulging with bilateral ligamentum flavum hypertrophy and facet arthritis. There is mild encroachment and narrowing of the subarticular recesses. Mild central, bilateral subar ticular recess and foraminal stenosis. L3-L4: Mild annular disc bulging, bilateral facet arthritis, greater on the RIGHT. No significant jayla nosis. L4-L5: Mild annular disc bulging with a LEFT paracentral disc protrusion and annular fissure. New LEF T hemilaminectomy defect. The fissure and disc protrusion is unchanged. No central stenosis. Mild lulu ateral facet arthritis. There is also been debridement of the ligamentum flavum. Postoperative soft t issue changes are noted on the LEFT. L5-S1: Mild annular disc bulging with a very shallow broad-based disc bulge and the protrusion in the LEFT foramen. There is now very slight contact on the undersurface of the LEFT exiting L5 nerve root . There is no displacement of the nerve root. Mild disc bulging is contacting but not displacing the S1 nerve roots. Moderate facet joint arthritis. Small extrarenal pelvis on the RIGHT. Mild atherosclerosis aorta but no aneurysm. IMPRESSION: 1. New LEFT hemilaminectomy defect at L4-5. 2. No change in the very small LEFT paracentral disc protrusion and annular fissure at L4-5. No sten osis. 3. Mild retrolisthesis of L1 and L2. 4. L1-2: Mild central, bilateral subarticular recess and moderate foraminal stenosis. Foraminal sten osis has progressed since the prior study. 5. L2-3: Mild central, bilateral subarticular recess and foraminal stenosis. 6. Mild annular disc bulging at L5. There is very slight progression of disc contact on the LEFT exi ting L5 nerve root and also on the S1 nerve roots but no displacement or high-grade stenosis.
--- NOTE | 2023-10-17 16:00 | MR_ITS ---
WS: [id number] MRI CERVICAL SPINE NONCONTRAST HISTORY: neck pain COMPARISON: 07/24/2022 Technique: Multiplanar, multisequence noncontrast imaging of the cervical spine. Since the prior MRI new anterior cervical disc fusion at C2-3. Prior anterior cervical disc fusion re brent from C4-C7. Interbody spacers are noted at all levels from C3-4 through C6-7. Signal within the cervical cord is normal. Visualized posterior fossa is unremarkable. Craniocervical junction, C1 and C2 relationship, odontoid process and soft tissues are normal. C2-C3: Normal. C3-C4: Mild osteophytic ridging. Small bilateral proximal foraminal osteophytes with mild foraminal n arrowing. C4-C5: No stenosis. Mild facet arthritis. C5-C6: Small LEFT foraminal osteophyte causing mild displacement of the exiting nerve root. No high-g rade stenosis. C6-C7: Mild osteophytic ridging. Moderate bilateral foraminal stenosis, LEFT greater than RIGHT. Slig ht progression of osteophytosis and stenosis. No central stenosis. C7-T1: Normal. Paraspinal soft tissue are normal. IMPRESSION: 1. New anterior cervical disc fusion at C2-3 since the prior study of 06/27/2022. 2. Mild progression of foraminal stenosis at C6-7. There is now moderate bilateral foraminal stenosi s LEFT slightly greater than RIGHT. Predominantly due to osteophytes. 3. Anterior cervical disc fusion from C4-C7 is unchanged. 4. No central stenosis.
== END 2023-10-17 14:51 | disposition home or self-care (01) ==
LOC: RAD 14:51
PROVIDERS: Absent Provider General Practice; PCP Internal Medicine; Visit Provider Orthopaedic Surgery
DX: M54.50 Low back pain, unspecified (principal); M54.2 Cervicalgia
CPT/HCPCS: 72141; 72148